=== PATIENT | male | born 1990 | race Caucasian/White ===

== ENCOUNTER 2018-11-04 09:50 | Emergency (ER) | payer MEDICAID, SELFPAY ==
[2018-11-04 09:53] VITALS: BP 137/83; PULSE 63; RESP 16; TEMP 37; O2SAT 98
--- NOTE | 2018-11-04 10:05 | DI.RAD_ITS ---
EXAM: XR SHOULDER RT COMPLETE 2+V INDICATION: R lateral posterior pain after fall. COMPARISON: No exams were available for comparison TECHNIQUE: 2D digital imaging was performed. FINDINGS: There is a faint radiolucency projected over the inferior tuberosity and could represent a nondisplac ed fracture. There is no evidence of a dislocation. Further assessment with CT would be appropriate.
--- NOTE | 2018-11-04 10:05 | W.ED.GENAD ---
Discharge Plan Disposition Patient Disposition: HOME Condition: Stable Discharge Details Chief Complaint: Orthopedic Clinical Impression: Closed fracture of proximal end of right humerus Primary Care Provider: None,None ED Provider: Glenn Mares Home Meds and New Rx's Prescriptions: No Action No Known Home Meds RF: 0 Discharge Instructions Instructions: Arm Fracture in Adults (ED) Additional Instructions: Ice to area to reduce pain. May use Tylenol and/or ibuprofen if needed for discomfort. Sling for comfort. You may perform gentle range of motion exercises daily as we discussed. We will refer you to orthopedics for follow-up. Please call the office at [phone] in the next 1 to 2 days for an appointment time. Return to the ER for any acute concern Stand Alone Forms: Work Release Medical Decision Making 20-year-old male states he fell on his right shoulder while skateboarding 3 days ago. Denies any other injury. He said right lateral and posterior shoulder pain is worse with movement since that time. His vital signs are normal and he is well-appearing, he has pain along the right scapula infraspinatus region with empty can maneuver. Differential diagnosis includes rotator cuff injury versus bony trauma/fracture. He has otherwise unremarkable exam. Referred for x-ray which reveals an atypical lucency at the right proximal humerus tuberosity. Patient subsequent referred for CT imaging which does reveal evidence of greater tuberosity fracture. Will place in sling for comfort and outpatient follow-up with orthopedics. He understands homecare with gentle range of motion exercises. He is stable for discharge home. HPI General Mode of arrival: ambulatory. Date/Time Provider Initiated Documentation: 11/04/18 09:54. Limitations to Documentation: no limitations. Information obtained by: patient. History of Present Illness 28 year old M presents to the emergency department with the chief complaint of Right lateral and posterior shoulder pain after fall 3 days ago, described as moderate, Quality is described as dull and constant, and is localized to the right and upper extremity. Patient reports no radiation. Patient started experiencing this day(s) and it has been intermittent. Movement worsens symptoms . Patient notes no other symptoms.; denies headaches and syncope. Related Data Home Medications Medication Instructions Recorded Confirmed Unknown [No Known Home Meds] 11/04/18 11/04/18 Allergies Allergy/AdvReac Type Severity Reaction Status Date / Time No Known Allergies Allergy Unverified 11/04/18 09:56 General Stated Complaint: Orthopedic TINO: 4 Review of Systems Review of Systems Narrative: Denies head/neck/back/chest/abdomen injury. No other complaints. No numbness or tingling. 6 systems reviewed and otherwise negative [facility] Social History Smoking/Tobacco Use Status: Never Alcohol Intake: current Alcohol Intake frequency: a few times a month Drug use: Never Substance use type: does not use Do you feel safe at home: Yes Do you feel safe in your relationship?: Yes Exam Narrative Exam Narrative: GEN: awake, alert, oriented 3. Pleasant, well groomed, interactive. HEAD: Normocephalic, atraumatic ENT: Mucous membranes moist, oropharynx unremarkable, External ear exam unremarkable EYES: PERRL, EOMI NECK: Full ROM, no DENG, no menigismus CHEST/RESP: Nontender ABDOMEN: Soft, nontender, no mass. +Bowel sounds EXT: Full ROM, no edema, no rash. Right lateral deltoid tenderness to palpation. Right posterior shoulder tenderness along infraspinatus region of the scapula, worse with resisted empty can maneuver. 1+ radial pulse bilateral upper extremity. Neuro: Grossly normal neurologic exam, conversant, interactive. Psych: Speech fluent, thoughts congruent, affect normal Course Vital Signs Vital signs: Vital Signs Temperature 37.0 C 11/04/18 09:53 Pulse 63 11/04/18 09:53 Respiratory Rate 16 11/04/18 09:53 Blood Pressure 137/83 11/04/18 09:53 Pulse Oximetry 98 11/04/18 09:53 Temperature 37.0 C 11/04/18 09:53 Temperature Source Skin 11/04/18 09:53 Pulse 63 11/04/18 09:53 Respiratory Rate 16 11/04/18 09:53 Respiratory Effort Non-Labored 11/04/18 09:55 Blood Pressure 137/83 11/04/18 09:53 Blood Pressure Position Sitting 11/04/18 09:53 Pulse Oximetry 98 11/04/18 09:53 Oxygen Delivery Method Room Air 11/04/18 09:53 Oxygen Flow Rate 0 11/04/18 09:53
--- NOTE | 2018-11-04 10:49 | DI.CT_ITS ---
EXAM: CT UPPER EXTREMITY RT WO CLINICAL HISTORY: Fall, ? tuberosity fracture on XR. FINDINGS: The CT examination reveals a minimally displaced fracture involving the greater tuberosity of the hum erus. There is no evidence of a dislocation.
== END 2018-11-04 11:40 | disposition home or self-care (01) ==
PROVIDERS: Emergency Provider Emergency Medicine
DX: S42.254A Nondisplaced fracture of greater tuberosity of right humerus, initial encounter for closed fracture (principal); V00.131A Fall from skateboard, initial encounter
CPT/HCPCS: 99284; 73030; 73200; L3650

== ENCOUNTER 2018-11-12 14:23 | Outpatient (CLI) | payer MEDICAID, SELFPAY ==
--- NOTE | 2018-11-12 13:31 | DI.RAD_ITS ---
EXAM: XR SHOULDER RT COMPLETE 2+V INDICATION: fracture. COMPARISON: XR SHOULDER RT COMPLETE 2+V from 11/04/2018 CT UPPER EXTREMITY RT WO from 11/04/2018 TECHNIQUE: 2D digital imaging was performed. FINDINGS: There is no change in alignment of the nondisplaced fracture involving the greater tuberosity of the right humerus. No new fracture or dislocation is present. The soft tissues are unremarkable. IMPRESSION: Stable nondisplaced fracture of the greater tuberosity.
== END 2018-11-12 14:43 ==
PROVIDERS: Visit Provider Student in an Organized Health Care Education/Training Program
DX: S42.254A Nondisplaced fracture of greater tuberosity of right humerus, initial encounter for closed fracture (principal)
CPT/HCPCS: 73030

== ENCOUNTER 2018-11-19 15:24 | Outpatient (CLI) | payer MEDICAID, SELFPAY ==
--- NOTE | 2018-11-19 13:26 | DI.RAD_ITS ---
EXAM: XR SHOULDER RT COMPLETE 2+V INDICATION: F/U FRACTURE. COMPARISON: No exams were available for comparison TECHNIQUE: 2D digital imaging was performed. FINDINGS: When compared with the previous examination of 11/12/2018, again noted is the fracture of the greater tuberosity of the humerus with no interval change in position or alignment.
== END 2018-11-19 15:44 ==
PROVIDERS: Visit Provider Student in an Organized Health Care Education/Training Program
DX: S42.254D Nondisplaced fracture of greater tuberosity of right humerus, subsequent encounter for fracture with routine healing (principal)
CPT/HCPCS: 73030

== ENCOUNTER 2018-12-17 13:36 | Outpatient (CLI) | payer MEDICAID, SELFPAY ==
--- NOTE | 2018-12-17 13:05 | DI.RAD_ITS ---
EXAM: XR SHOULDER RT COMPLETE 2+V INDICATION: fu fracture. COMPARISON: XR SHOULDER RT COMPLETE 2+V from 11/12/2018 XR SHOULDER RT COMPLETE 2+V from 11/19/2018 TECHNIQUE: 2D digital imaging was performed. FINDINGS: There has been no change in the alignment of the fracture of the greater tuberosity of the humerus. There is evidence of continued healing. IMPRESSION:
== END 2018-12-17 13:56 ==
PROVIDERS: Visit Provider Student in an Organized Health Care Education/Training Program
DX: S42.254D Nondisplaced fracture of greater tuberosity of right humerus, subsequent encounter for fracture with routine healing (principal)
CPT/HCPCS: 73030